=== PATIENT | male | born 2005 | race Hispanic/Latino ===

== ENCOUNTER 2025-06-13 13:16 | Emergency (ER) | payer SELFPAY ==
[2025-06-13] MEDS ORDERED: Fluorescein Opthalmic Strip ONE (14:48)
[2025-06-13] MEDS ORDERED: Proparacaine 0.5% Opth 15 ML BOT ONE (14:49)
== END 2025-06-13 15:33 | disposition home or self-care (01) ==
LOC: CSHERS 13:16
DX: H16.002 Unspecified corneal ulcer, left eye (principal)
CPT/HCPCS: 99283